=== PATIENT | female | born 1990 | race Caucasian/White ===

== ENCOUNTER 2021-10-23 09:48 | Emergency (ER) | payer BC ==
[~2021-10-23] VITALS: Ht 170.2 cm; Wt 65.9 kg
[2021-10-23 10:00] VITALS: BP 126/77
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
[2021-10-23] MEDS: IBUPROFEN 400 MG TAB PO ONE (10:31)
[2021-10-23] MEDS: ACETAMINOPHEN 325 MG TAB PO ONE (10:31)
[2021-10-23] MEDS: ONDANSETRON 4 MG ODT PO ONE (10:32)
--- NOTE | 2021-10-23 10:36 | NUR ---
PT TAKEN TO XR VIA WC
[2021-10-23] MEDS ORDERED: CYCL-654 PO (11:24)
[2021-10-23] MEDS ORDERED: IBUP-2213 PO (11:24)
[2021-10-23] MEDS ORDERED: ONDA-188 SL (11:24)
--- NOTE | 2021-10-23 11:57 | NUR ---
Patient discharged with v/s stable. Written and verbal after care instructions given and explained. Patient alert, oriented and verbalized understanding of instructions. Ambulatory with steady gait. All questions addressed prior to discharge. ID band removed. Patient advised to follow up with PMD. Rx of CYCLBENZAPRINE, IBUPROFEN, ONDANSETRON given. Opportunity to ask questions provided and answered.
== END 2021-10-23 11:56 | disposition home or self-care (01) ==
LOC: MED 09:48
DX: S16.1XXA Strain of muscle, fascia and tendon at neck level, initial encounter (principal); S00.31XA Abrasion of nose, initial encounter; Z79.899 Other long term (current) drug therapy; V47.5XXA Car driver injured in collision with fixed or stationary object in traffic accident, initial encounter; Y93.89 Activity, other specified; Y92.89 Other specified places as the place of occurrence of the external cause; Y99.8 Other external cause status
CPT/HCPCS: 72040; 81002; 81025; 99284; Q0162